=== PATIENT | male | born 1995 | race Caucasian/White ===

== ENCOUNTER → 2022-08-30 | Outpatient (CLI) | payer OTHER ==
[2022-08-30 14:51] LABS: PLATELET COUNT, AUTOMATED 281 10^3/uL (150-450)
[2022-08-30 15:24] LABS: COLLAGEN EPINEPHRINE 214 SECONDS (74-162)
[2022-08-30 15:34] LABS: INR 0.99; PROTHROMBIN TIME 13.3 SECONDS (12.5-14.5)
[2022-08-30 15:35] LABS: PARTIAL THROMBOPLASTIN TIME 28.8 SECONDS (24.8-34.2)
[2022-08-30 15:49] LABS: COLLAGEN ADP 134 SECONDS (56-103)
== END ==
LOC: M LAB 14:10
PROVIDERS: ATTEND Physician Assistant
DX: Z01.818 Encounter for other preprocedural examination (principal)